=== PATIENT | male | born 1940 | race Caucasian/White ===

== ENCOUNTER 2016-12-03 11:04 | Emergency (ER) | payer OTHER ==
[~2016-12-03] VITALS: Ht 162.6 cm; Wt 83.0 kg
[2016-12-03 11:08] VITALS: BP 153/89
[2016-12-03] MEDS ORDERED: TETANUS, DIPHTHERIA, PERTUSSIS VAC/PF 0.5ML (>7YR OLD) IM ONE (12:00)
[2016-12-03] MEDS ORDERED: BACITRACIN ZINC OINT UDPKT TOP ONE (12:00)
== END 2016-12-03 12:32 | disposition home or self-care (01) ==
LOC: ER 12:30
DX: S01.312A Laceration without foreign body of left ear, initial encounter (principal); W45.8XXA Other foreign body or object entering through skin, initial encounter; Y93.89 Activity, other specified; Y92.89 Other specified places as the place of occurrence of the external cause; Y99.8 Other external cause status
CPT/HCPCS: 12011; 90471; 90715; 99283